=== PATIENT | male | born 2000 | race Caucasian/White ===

== ENCOUNTER 2021-03-08 12:46 | Emergency (ER) | payer MEDICAID, SELFPAY ==
[2021-03-08 13:30] VITALS: BP 130/84; PULSE 91; RESP 19; TEMP 37.1; O2SAT 99; BMI 43.0
[2021-03-08 13:57] LABS: UTC Strep Screen (Rapid) Positive (Negative)
--- NOTE | 2021-03-08 14:02 | HMH.EDUTC ---
[facility] [place] Impression: Strep throat Disposition: Home, Self-Care Condition on Discharge: Good Instructions: Strep Throat, DI for Strep Throat Additional Instructions: *Monitor Temp, Over the counter Motrin or Tylenol as directed/as needed Tylenol every 4 hours and Motrin every 6 hours (as long as your family doctor has told you that you can take it) for fever or pain. and straight to ER if unable to lower temp less than 101.0 after medication given *Warm salt water gargles may help to soothe the throat *Throat Lozenges *Warm fluids like tea with honey may help to soothe the throat *Sleep elevated *Humidifier/Vaporizer *If you did not take Penicillin shot or was unable to, start taking antibiotic immediately and make sure that you take it for the FULL length of time although you should start to feel better in 24-48 hours *change toothbrush and toothpaste 24-48 hours after starting to take antibiotics so you do not reinfect yourself Monitor Temp. Tylenol and/or Ibuprofen as needed. ER if fever is no less than 101 despite alternating Tylenol and Ibuprofen * Encourage fluids, water, Gatorade, powerade, pedialyte if infant/toddler/or child *Cold fluids, popsicles and ice cream may feel good on his throat Follow up IMMEDIATELY for new or worsening symptoms or no Noticeable improvement over the next 48-72 hours. 911 for difficulty breathing or swallowing You were tested for today for COVID19 your test result should be back in the next 24-48 hours, you may check your results on the [facility] My health portal if you have trouble logging on or seeing your results you may call You was given a handout with instructions for Self Quarantine and Self isolation for while you wait on test results and what to do if they are positive If you are positive the Health Dept will be contacting you also Make sure to take your Vitamins Vit. C Vit D and Zinc if you can take them Prescriptions: methylPREDNISolone [Medrol 4mg tab] 4 mg PO DIRECTED #21 tab Transmission Status: Pending to [facility] # Azithromycin [Z-Marcelino 250mg Tab] 250 mg PO DIRECTED #6 tab Transmission Status: Pending to [facility] # Referrals: Lenard Steele MD [Primary Care Provider] - As needed Forms: Work/School Release Time of Disposition: 14:12 Medical Decision Making - Milo Inquiry Pt receiving controlled substance: No Milo was queried for this patient: No Vital Signs: 03/08/21 13:30 Temperature 98.8 F Temperature Source Oral Pulse Rate [Right Brachial] 91 H Respiratory Rate 19 Blood Pressure [Right Arm] 130/84 Blood Pressure Mean [Right Arm] 99 Blood Pressure Source [Right Arm] Automatic Cuff Blood Pressure Position [Right Arm] Sitting 02 Sat by Pulse Oximetry 99 Oxygen Delivery Method Room Air - Lab Data Lab results reviewed: Yes: I reviewed the patient's lab results. Lab Results 03/08/21 13:52: Strep Scn Rapid Clinic Positive A Orders (Tests/Meds): ORDERS Category Date Time Status Covid-19 Nasal PCR ([facility]) Routine Lab 03/08/21 13:40 [place] [facility] [place] - General Stated complaint: wheezing, chest congestion Time Seen by Provider: 03/08/21 14:02 Mode of Arrival: Ambulatory Source of Information: Patient Limitations: No Limitations Description of Symptoms (Recalled from Triage Doc. by RN): PATIENT C/O COUGH AND CHEST CONGESTION X 2 WEEKS HEENT Symptoms (Recalled from RN notes): Yes Resp Symptoms (Recalled from RN notes): Yes Skin Symptoms (Recalled from RN notes): No MS Symptoms (Recalled from RN notes): No Functional Status (Recalled from RN notes): WNL - History of Present Illness Provider Complaint: Patient states that he has been having sore throat, cough, congestion and stuffy nose States that his throat hurts when he coughs or swallows States that today his throat was hurting worse so he came in to get checked out - Related Data Previous Rx's Medication Instructions Recorded
[2021-03-08 14:18] VITALS: BP 130/84; PULSE 91; RESP 19; TEMP 37.1; O2SAT 99
== END 2021-03-08 14:25 | disposition home or self-care (01) ==
PROVIDERS: Emergency Provider Nurse Practitioner; PCP Internal Medicine Adolescent Medicine
DX: J02.0 Streptococcal pharyngitis (principal); Z20.822 Contact with and (suspected) exposure to COVID-19
CPT/HCPCS: 87880; 99203; C9803; G0463; U0003; U0005

== ENCOUNTER 2022-03-13 15:44 | Emergency (ER) | payer MEDICAID, SELFPAY ==
[2022-03-13 16:04] VITALS: BP 132/76; PULSE 87; RESP 18; TEMP 36.9; O2SAT 96; BMI 39.1
[2022-03-13 17:26] VITALS: BP 0/0; PULSE 0; RESP 0; TEMP -17.7; TEMP 0
== END 2022-03-13 17:28 | disposition left against medical advice (07) ==
LOC: UTC 16:05
PROVIDERS: Emergency Provider Nurse Practitioner Family
DX: J32.9 Chronic sinusitis, unspecified (principal)
CPT/HCPCS: 99212; G0463

== ENCOUNTER 2022-03-16 08:05 | Emergency (ER) | payer MEDICAID, SELFPAY ==
[2022-03-16 08:20] VITALS: BP 132/76; PULSE 75; RESP 22; TEMP 36.5; O2SAT 97; BMI 45.4
[2022-03-16 08:48] LABS: UTC Influenza A Antigen Negative (Negative); UTC Strep Screen (Rapid) Negative (Negative)
[2022-03-16 08:49] LABS: UTC Influenza B Antigen Negative (Negative)
--- NOTE | 2022-03-16 08:52 | EXP.UTC ---
Discharge Plan Disposition Patient Disposition: Home, Self-Care Condition: Good Prescriptions Prescriptions: New azithromycin [Zithromax Z-Marcelino] 250 mg tablet See Rx Instructions .ROUTE .COMPLEX 5 Days Qty: 6 0RF Rx Instructions: For 250 mg dose pack: take 500 mg today (day 1), then 250 mg for 4 days (days 2-5) methylprednisolone [Medrol (Marcelino)] 4 mg tablets,dose pack See Rx Instructions .Route .COMPLEX 6 Days Qty: 21 0RF Rx Instructions: taper pack; polymyxin B sulf-trimethoprim [Polytrim] 10,000 unit- 1 mg/mL drops 2 drp ophthalmic (eye) Q6H 7 Days Qty: 10 0RF Rx Instructions: both eyes while awake; do not exceed 6 doses in 24 hours Referrals Follow up/Referrals: Provider,Referral, MD [Primary Care Provider] - See instructions Activity Restrictions/Add. Instructions Additional Instructions/Restrictions: *Monitor Temp, Over the counter Motrin or Tylenol as directed/as needed Tylenol every 4 hours and Motrin every 6 hours (as long as your family doctor has told you that you can take it) for fever or pain. and straight to ER if unable to lower temp less than 101.0 after medication given *Warm salt water gargles may help to soothe the throat *Throat Lozenges? *Warm fluids like tea with honey may help to soothe the throat? *Sleep elevated *Humidifier/Vaporizer *Take medication as prescribed Wash hands well before and after applying drops Your throat swab was sent for culture. Those results are typically sent to your primary care. Be sure to follow up in 2-3 days with your family doctor/primary care physician if no improvement so they can review those result and treat if necessary. If you don?t have a primary care doctor, I recommend you get one but in the mean time, you will have to return to a walk in clinic Follow up IMMEDIATELY for new or worsening symptoms or no Noticeable improvement over the next 48-72 hours. 911 for difficulty breathing or swallowing Instructions Patient Instructions: DI for Sinusitis, Sinusitis Discharge ED Provider: Lakshmi Harrison [facility] [place] General Stated complaint: Head congestion, cough, sinus congestion Mode of Arrival: Ambulatory Source of Information: Patient and Parent(s) Limitations: No Limitations Time Seen by Provider: 03/16/22 08:52 Description of Symptoms (Recalled from Triage Doc. by RN): PATIENT C/O EYE DRAINAGE, RUNNY NOSE, AND SORE THROAT X 3 WEEKS HEENT Symptoms (Recalled from RN notes): Yes Resp Symptoms (Recalled from RN notes): No Skin Symptoms (Recalled from RN notes): No MS Symptoms (Recalled from RN notes): No Functional Status (Recalled from RN notes): WNL History of Present Illness Provider Complaint: Patient states he hasnt felt well in about 3 weeks States that he has been having sinus congestion and pressure, drainage and matting in both eyes sore throat and cough States that last night he was still not feeling well so mother had him com in and get checked out Related Data Previous Rx's Medication Instructions Recorded azithromycin 250 mg tablet See Rx Instructions PO .COMPLEX 5 03/16/22 (Zithromax Z-Marcelino) days #6 tabs methylprednisolone 4 mg tablets in See Rx Instructions .Route 03/16/22 a dose pack (Medrol (Marcelino)) .COMPLEX 6 days #21 tabs polymyxin B sulfate 10,000 2 drp ophthalmic (eye) Q6H 7 days 03/16/22 unit-trimethoprim 1 mg/mL eye #10 mL drops (Polytrim) Allergies Allergy/AdvReac Type Severity Reaction Status Date / Time Penicillins Allergy Verified 03/08/21 13:56 Worker's Comp Is this a Worker's Comp case?: No PFSH PFSH Medical History (Updated 03/16/22 @ 08:48 by Mallory Adler RN) Hyperlipidemia Hypertension Social History (Updated 03/16/22 @ 08:48 by Mallory Adler RN) Smoking Status: Unknown if ever smoked alcohol intake: never current occupational status: other Travel in the last 8 weeks: None ROS Obtained: Yes All systems reviewed & no additi
[2022-03-16 09:08] VITALS: BP 132/76; PULSE 75; RESP 22; TEMP 37.2; O2SAT 97
== END 2022-03-16 09:13 | disposition home or self-care (01) ==
PROVIDERS: Emergency Provider Nurse Practitioner
DX: J02.9 Acute pharyngitis, unspecified (principal); H10.33 Unspecified acute conjunctivitis, bilateral; R05.9 Cough, unspecified; R09.89 Other specified symptoms and signs involving the circulatory and respiratory systems; I10 Essential (primary) hypertension; E78.5 Hyperlipidemia, unspecified; Z79.52 Long term (current) use of systemic steroids; Z88.0 Allergy status to penicillin
CPT/HCPCS: 87804; 87880; 99213; G0463

== ENCOUNTER 2022-06-18 01:57 | Emergency (ER) | payer MEDICAID, SELFPAY ==
[2022-06-18 02:07] VITALS: BP 156/86; PULSE 88; RESP 18; TEMP 36.9; O2SAT 96; BMI 43.5
--- NOTE | 2022-06-18 02:13 | XR_ITS ---
PROCEDURE INFORMATION: Exam: XR Left Knee Exam date and time: 06/18/2022 2:10 AM Age: 22 years old Clinical indication: Pain; Knee; Left; Additional info: Knee pain TECHNIQUE: Imaging protocol: Radiologic exam of the Left knee. Views: 3 views. COMPARISON: No relevant prior studies available. FINDINGS: Bones/joints: Osseous alignment is normal. No acute fracture evident. Mild degenerative changes are noted in the lateral compartment. Soft tissues: Normal. IMPRESSION: Mild osteoarthritis. No acute abnormality
--- NOTE | 2022-06-18 02:55 | HMH.EDLOEX ---
Discharge Plan Disposition Patient Disposition: Home, Self-Care Prescriptions Prescriptions: New prednisone [prednisone] 20 mg tablet 20 mg PO BID Qty: 10 0RF No Action azithromycin [Zithromax Z-Marcelino] 250 mg tablet See Rx Instructions .ROUTE .COMPLEX 5 Days Qty: 6 0RF Rx Instructions: For 250 mg dose pack: take 500 mg today (day 1), then 250 mg for 4 days (days 2-5) methylprednisolone [Medrol (Marcelino)] 4 mg tablets,dose pack See Rx Instructions .Route .COMPLEX 6 Days Qty: 21 0RF Rx Instructions: taper pack; polymyxin B sulf-trimethoprim [Polytrim] 10,000 unit- 1 mg/mL drops 2 drp ophthalmic (eye) Q6H 7 Days Qty: 10 0RF Rx Instructions: both eyes while awake; do not exceed 6 doses in 24 hours Referrals Follow up/Referrals: Provider,Referral, MD [Primary Care Provider] - See instructions Clinical Impressions Clinical Impression: Left knee sprain Instructions Patient Instructions: DI for Knee Sprain Discharge ED Provider: Belkys (ED)Joshua Lower Extremity Injury HPI General Chief Complaint: Extremity Injury, Lower Stated Complaint: Left leg pain Time Seen by Provider: 06/18/22 02:55 Mode of Arrival: Wheelchair Source of Information: Patient, Spouse and Medical Record Limitations: No Limitations Description of Symptoms (Recalled from ER Triage Doc. by RN): PT arrives via private vehicle. C/O left knee pain. States that two days ago at work he was laying steven on his knees when he felt a pop in his knee but was able to pop it back into place. Pt states that roughly 30 minutes ago he rolled over in bed and believes he twisted his left knee in his sleep. Woke up with severe pain and is unable to fully extend his leg. History of Present Illness HPI Narrative: pt with lt knee pain - pt has popping lt patella and pain-- pain with extending knee complaint: knee injury Onset (ago): hour(s) Injury: Left: knee Type of Injury: hyperextension Place: home Severity: moderate Associated symptoms: able to partially bear weight Related Data Previous Rx's Medication Instructions Recorded azithromycin 250 mg tablet See Rx Instructions PO .COMPLEX 5 03/16/22 (Zithromax Z-Marcelino) days #6 tabs methylprednisolone 4 mg tablets in See Rx Instructions .Route 03/16/22 a dose pack (Medrol (Marcelino)) .COMPLEX 6 days #21 tabs polymyxin B sulfate 10,000 2 drp ophthalmic (eye) Q6H 7 days 03/16/22 unit-trimethoprim 1 mg/mL eye #10 mL drops (Polytrim) prednisone 20 mg tablet 20 mg PO BID #10 tabs 06/18/22 Allergies Allergy/AdvReac Type Severity Reaction Status Date / Time Penicillins Allergy Verified 03/08/21 13:56 [facility] Disclaimer: The information contained in this section may have been updated after the patient was seen, as this information can be updated by other users. Medical History (Updated 06/18/22 @ 03:23 by Joshua Rizvi (RAFAL)MD) Hyperlipidemia Hypertension Social History (Updated 03/16/22 @ 09:04 by Lakshmi Harrison APRN) Smoking Status: Never smoker alcohol intake: never current occupational status: other Travel in the last 8 weeks: None ROS Obtained: Yes All systems reviewed & no additional complaints except as documented Physical Exam General General appearance: alert Head Head exam: normocephalic Eye Eye exam: Present PERRL and EOMI ENT ENT exam: Present mucous membranes moist Neck Neck exam: Present trachea midline Respiratory Respiratory exam: Absent respiratory distress Cardiovascular Cardiovascular exam: Present regular rate Abdominal Exam Abdominal exam: Present soft Expanded Lower Extremity Exam Left: Knee exam: Present tenderness and knee extension intact; Absent full ROM or swelling Neurovascular/Tendon exam: Absent pulse deficit or motor deficit Neurological Exam Neurological exam: Present alert and CN II-XII intact Skin Skin exam: Absent rash Medical Decision Making Medical Records Medical records r
[2022-06-18 03:14] VITALS: BP 150/80; PULSE 82; RESP 18; TEMP 36.6; O2SAT 99
== END 2022-06-18 03:27 | disposition home or self-care (01) ==
PROVIDERS: Emergency Provider Emergency Medicine
DX: S83.92XA Sprain of unspecified site of left knee, initial encounter (principal); X50.0XXA Overexertion from strenuous movement or load, initial encounter; I10 Essential (primary) hypertension; E78.5 Hyperlipidemia, unspecified; Y99.0 Civilian activity done for income or pay
CPT/HCPCS: 73562; 99283; 99284

== ENCOUNTER 2023-05-02 13:52 | Outpatient (CLI) | payer MEDICAID, SELFPAY ==
[2023-05-02 13:24] LABS: Basophils % 0.3 % (0.1-2.0); Eosinophils # 0.1 K/mm3 (0.0-0.4); Eosinophils % 1.7 % (0.1-12.0); Hematocrit 32.8 % (42.0-52.0); Hemoglobin 9.9 g/dL (14.1-18.0); Lymphocytes # 1.4 K/mm3 (0.7-4.5); Lymphocytes % 17.5 % (10-50); Mean Corpuscular HGB Conc 30.3 g/dL (31.8-35.4); Mean Corpuscular Volume 79.2 fl (80-94); Mean Platelet Volume 8.1 fl (7.4-10.4); Monocytes # 0.4 K/mm3 (0.1-1.0); Monocytes % 5.3 % (1.7-9.3); Neutrophils % 75.2 % (37.0-80.0); Platelet Count 461 K/mm3 (142-424); Red Blood Count 4.14 M/mm3 (4.60-6.20); Red Cell Distribution Width 19.3 % (11.5-17.5)
[2023-05-02 14:12] LABS: Alanine Aminotransferase 43 U/L (12-78); Albumin Level 4.1 g/dl (3.5-5.0); Albumin/Globulin Ratio 1.2 (1.1-1.8); Alkaline Phosphatase 73 U/L (38-126); Anion Gap 15.3 mEq/L (5-15); Aspartate Amino Transferase 29 U/L (17-59); Bilirubin,Total 0.3 mg/dl (0.2-1.3); Blood Urea Nitrogen 7 mg/dl (9-20); Calcium 8.8 mg/dl (8.4-10.2); Carbon Dioxide 22 mmol/L (22.0-30.0); Chloride 104 mmol/L (98-107); Chol/HDL Ratio 7.4 (1-3.5); Cholesterol 177 mg/dl (140-200); Estimated Glomerular Filt Rate 121 ml/min (>60); GFR (African American) 146 ML/MIN (>60); Globulin 3.4 g/dL (1.3-3.2); Glucose 83 mg/dl (74-100); HDL Cholesterol 24 mg/dl (40-60); Magnesium 1.9 mg/dl (1.6-2.3); Potassium 4.3 mmoL/L (3.5-5.1); Sodium 137 mmol/L (136-145); Total Protein,Serum 7.5 g/dl (6.3-8.2); Triglycerides 190 mg/dl (30-150); VLDL Cholesterol 38 mg/dL (0-40)
[2023-05-02 14:30] LABS: Direct LDL Cholesterol 111.31 mg/dL (100-129)
[2023-05-02 14:30] LABS: Free T4 (Free Thyroxine) 1.21 ng/dl (0.78-2.19)
[2023-05-02 14:45] LABS: Thyroid Stimulating Hormone 2.96 uIU/mL (0.465-4.68)
[2023-05-02 15:04] LABS: Vitamin B12 723 pg/mL (239-931)
[2023-05-02 15:06] LABS: 25-OH Vitamin D, Total < 12.8 ng/mL (30-100)
[2023-05-02 16:47] LABS: Hemoglobin A1C 4.7 % (4.0-6.0)
[2023-05-02 18:42] LABS: Amphetamine/Metha Screen,Urine Negative ng/ml (<1000); Barbiturates Screen,Urine Negative ng/ml (<200); Benzodiazepines Screen,Urine Negative ng/ml (<200); Cannabinoid Screen,Urine Negative ng/ml (<50); Cocaine Screen,Urine Negative ng/ml (<300); Methadone Screen,Urine Negative ng/ml (<300); Opiate Screen,Urine Negative ng/ml (<300); Phencyclidine Screen,Urine Negative ng/ml (<25)
== END 2023-05-02 23:59 ==
LOC: LAB.DROPOF 13:53
PROVIDERS: PCP Nurse Practitioner Family; Visit Provider Nurse Practitioner Family
DX: R53.83 Other fatigue (principal); G62.9 Polyneuropathy, unspecified; D64.9 Anemia, unspecified; Z13.1 Encounter for screening for diabetes mellitus; Z13.220 Encounter for screening for lipoid disorders; E55.9 Vitamin D deficiency, unspecified; Z79.899 Other long term (current) drug therapy
CPT/HCPCS: 80053; 80061; 80307; 82306; 82607; 83036; 83735; 84439; 84443; 85025

== ENCOUNTER 2023-05-22 13:41 | Outpatient (CLI) | payer MEDICAID, SELFPAY ==
[2023-05-22 14:46] LABS: Basophils # 0.1 K/mm3 (0-0.2); Basophils % 0.5 % (0.1-2.0); Eosinophils # 0.2 K/mm3 (0.0-0.4); Eosinophils % 2.5 % (0.1-12.0); Hematocrit 36.3 % (42.0-52.0); Hemoglobin 11.4 g/dL (14.1-18.0); Lymphocytes # 2.2 K/mm3 (0.7-4.5); Lymphocytes % 25.3 % (10-50); Mean Corpuscular HGB Conc 31.5 g/dL (31.8-35.4); Mean Corpuscular Hemoglobin 24.1 pg (27.0-31.2); Mean Corpuscular Volume 76.7 fl (80-94); Mean Platelet Volume 8.1 fl (7.4-10.4); Monocytes # 0.4 K/mm3 (0.1-1.0); Monocytes % 4.1 % (1.7-9.3); Neutrophils # 5.9 K/mm3 (1.8-7.8); Neutrophils % 67.5 % (37.0-80.0); Platelet Count 507 K/mm3 (142-424); Red Blood Count 4.73 M/mm3 (4.60-6.20); Red Cell Distribution Width 18.4 % (11.5-17.5); White Blood Count 8.8 K/mm3 (4.8-10.8)
[2023-05-22 15:13] LABS: Alanine Aminotransferase 23 U/L (12-78); Albumin Level 4.3 g/dl (3.5-5.0); Albumin/Globulin Ratio 1.3 (1.1-1.8); Alkaline Phosphatase 59 U/L (38-126); Anion Gap 16.8 mEq/L (5-15); Aspartate Amino Transferase 24 U/L (17-59); Bilirubin,Total 0.3 mg/dl (0.2-1.3); Blood Urea Nitrogen 8 mg/dl (9-20); Calcium 9.2 mg/dl (8.4-10.2); Carbon Dioxide 25 mmol/L (22.0-30.0); Chloride 102 mmol/L (98-107); Estimated Glomerular Filt Rate 121 ml/min (>60); GFR (African American) 146 ML/MIN (>60); Globulin 3.3 g/dL (1.3-3.2); Glucose 77 mg/dl (74-100); Potassium 4.8 mmoL/L (3.5-5.1); Sodium 139 mmol/L (136-145); Total Protein,Serum 7.6 g/dl (6.3-8.2)
== END 2023-05-22 23:59 ==
LOC: LAB.DROPOF 13:42
PROVIDERS: PCP Nurse Practitioner Family; Visit Provider Nurse Practitioner Family
DX: D64.9 Anemia, unspecified (principal); L08.9 Local infection of the skin and subcutaneous tissue, unspecified; R53.83 Other fatigue; T14.8XXA Other injury of unspecified body region, initial encounter; Z98.890 Other specified postprocedural states; R78.81 Bacteremia; B95.2 Enterococcus as the cause of diseases classified elsewhere
CPT/HCPCS: 80053; 85025; 87070; 87205

== ENCOUNTER 2023-05-25 11:49 | Outpatient (CLI) | payer MEDICAID, SELFPAY ==
--- NOTE | 2023-05-25 11:49 | MR_ITS ---
FINAL REPORT CLINICAL HISTORY: left lower leg wound infection that tunnels COMPARISON: None FINDINGS: Multiplanar MR imaging of the left lower leg was performed with and without contrast. There is extensive inflammation throughout the lower leg. There is marked abnormal signal particularly evident within the tibialis posterior muscle and within the flexor hallucis longus muscle. There is also abnormal signal within the inferior soleus muscle. There is fluid along the fascial plane. On the post infusion images there is enhancement along the periphery of the tibialis posterior and flexor hallucis longus muscles. The muscles themselves do not appear do enhance. Discrete loculated fluid collection is not seen. There appears to be localized ulceration along the medial aspect of the lower leg. IMPRESSION: Extensive inflammation throughout muscular compartments of the lower leg with overlying soft tissue ulceration. 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 Surgical evaluation highly recommended. No evidence of marrow edema to suggest osteomyelitis. Reviewed, Interpreted and Dictated by Blaze Ruiz MD Transcribed by Maryan Dillon Authenticated and [facility]
[2023-05-25] MEDS: GADOTERIDOL INJ 17ML SYRINGE 20 ML IV (12:44)
[2023-05-25] MEDS: SODIUM CHLORIDE 0.9% 10ML SYR (RAD ONLY) 10 ML IV (12:44)
== END 2023-05-25 23:59 | disposition home or self-care (01) ==
LOC: RAD 11:49
PROVIDERS: PCP Nurse Practitioner Family; Visit Provider Nurse Practitioner Family
DX: S81.832S Puncture wound without foreign body, left lower leg, sequela (principal); L08.9 Local infection of the skin and subcutaneous tissue, unspecified; T14.8XXA Other injury of unspecified body region, initial encounter; B96.89 Other specified bacterial agents as the cause of diseases classified elsewhere; B95.2 Enterococcus as the cause of diseases classified elsewhere; M79.662 Pain in left lower leg
CPT/HCPCS: 73720; A9576

== ENCOUNTER 2023-05-26 11:28 | Emergency (ER) | payer MEDICAID, SELFPAY ==
[2023-05-26] VITALS (7 sets, daily range): BP systolic 138–153; BP diastolic 68–93; PULSE 85–97; RESP 16–20; TEMP 36.9; O2SAT 96–100; BMI 37.5
--- NOTE | 2023-05-26 11:47 | PC.NURSE ---
Air methods and air evac both declined due to weather.
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
[2023-05-26 12:11] LABS: Basophils # 0.1 K/mm3 (0-0.2); Basophils % 0.6 % (0.1-2.0); Eosinophils # 0.3 K/mm3 (0.0-0.4); Eosinophils % 3.1 % (0.1-12.0); Hematocrit 37.8 % (42.0-52.0); Hemoglobin 11.9 g/dL (14.1-18.0); Lymphocytes # 2.2 K/mm3 (0.7-4.5); Lymphocytes % 26.3 % (10-50); Mean Corpuscular HGB Conc 31.4 g/dL (31.8-35.4); Mean Corpuscular Hemoglobin 23.7 pg (27.0-31.2); Mean Corpuscular Volume 75.5 fl (80-94); Monocytes # 0.3 K/mm3 (0.1-1.0); Monocytes % 3.3 % (1.7-9.3); Neutrophils # 5.6 K/mm3 (1.8-7.8); Neutrophils % 66.6 % (37.0-80.0); Platelet Count 402 K/mm3 (142-424); Red Blood Count 5.01 M/mm3 (4.60-6.20); Red Cell Distribution Width 18.8 % (11.5-17.5); White Blood Count 8.5 K/mm3 (4.8-10.8)
[2023-05-26] MEDS: VANCOMYCIN CONSULT REQUEST 1 EACH NOTAPPLIC (12:28)
[2023-05-26] MEDS: ERTAPENEM SODIUM 1 GM in 0.9 % SODIUM CHLORIDE 50 ML IV (12:29)
[2023-05-26 12:33] LABS: Alanine Aminotransferase 31 U/L (12-78); Albumin Level 4.3 g/dl (3.5-5.0); Albumin/Globulin Ratio 1.1 (1.1-1.8); Alkaline Phosphatase 59 U/L (38-126); Anion Gap 16.6 mEq/L (5-15); Aspartate Amino Transferase 30 U/L (17-59); Bilirubin,Total 0.4 mg/dl (0.2-1.3); Blood Urea Nitrogen 8 mg/dl (9-20); Calcium 9.5 mg/dl (8.4-10.2); Carbon Dioxide 25 mmol/L (22.0-30.0); Chloride 104 mmol/L (98-107); Creatine Kinase 76 U/L (55-170); Creatinine Clearance Estimated 255 mL/min (50-200); Estimated Glomerular Filt Rate 141 ml/min (>60); GFR (African American) 171 ML/MIN (>60); Globulin 3.8 g/dL (1.3-3.2); Glucose 156 mg/dl (74-100); Potassium 3.6 mmoL/L (3.5-5.1); Sodium 142 mmol/L (136-145); Total Protein,Serum 8.1 g/dl (6.3-8.2)
[2023-05-26 12:37] LABS: Lactic Acid 2.3 mmol/L (0.7-2.1)
[2023-05-26 12:40] LABS: C-Reactive Protein 15.8 mg/L (0-4)
[2023-05-26] MEDS: CLINDAMYCIN PHOSPHATE 900 MG in 0.9 % SODIUM CHLORIDE 50 ML 56 MG IV (13:16)
[2023-05-26] MEDS: VANCOMYCIN/WATER FOR INJ (PEG) 1.75 GM/350 ML PIGGYBACK IV (13:26)
[2023-05-26 16:05] LABS: Reflex Lactic Add Lactic Reflex
== END 2023-05-26 14:24 | disposition short-term general hospital (02) ==
PROVIDERS: Emergency Provider Emergency Medicine; PCP Nurse Practitioner Family
DX: M72.6 Necrotizing fasciitis (principal); M60.862 Other myositis, left lower leg; S81.802S Unspecified open wound, left lower leg, sequela; Y24.9XXS Unspecified firearm discharge, undetermined intent, sequela; I10 Essential (primary) hypertension; E78.5 Hyperlipidemia, unspecified; F17.200 Nicotine dependence, unspecified, uncomplicated
CPT/HCPCS: 80053; 82550; 83605; 85025; 86140; 87040; 96361; 96365; 96368; 96375; 99291; J0736; J1335

== ENCOUNTER 2023-06-19 10:06 | Outpatient (CLI) | payer MEDICAID, SELFPAY | END 2023-06-19 23:59 | LOC: LAB.DROPOF 10:06 | PROVIDERS: PCP Nurse Practitioner Family; Visit Provider Nurse Practitioner Family | DX: M79.605 Pain in left leg (principal); L08.9 Local infection of the skin and subcutaneous tissue, unspecified; T14.8XXA Other injury of unspecified body region, initial encounter; B96.89 Other specified bacterial agents as the cause of diseases classified elsewhere | CPT/HCPCS: 87070; 87205 ==

== ENCOUNTER 2023-07-12 10:01 | Outpatient (CLI) | payer MEDICAID, SELFPAY ==
--- NOTE | 2023-07-12 10:02 | CA_ITS ---
FINAL REPORT TECHNIQUE: Color Doppler, duplex Doppler and compression sonography of the left lower extremity deep venous systems was performed. CLINICAL HISTORY: Left lower leg swelling and redness proximal to left lateral ankle, pain FINDINGS: There is no evidence of deep venous thrombosis from the level of the groin to the calf. The veins are patent and compressible. IMPRESSION: No evidence of deep venous thrombosis left lower extremity. Reviewed, Interpreted and Dictated by Yves Alvarez III, MD Transcribed by Radha Boles Authenticated and [facility]
[2023-07-12 14:32] LABS: Adenovirus,PCR Not Detected (NotDetected); Coronavirus 19, PCR Not Detected (NotDetected); Coronavirus 229E Not Detected (NotDetected); Coronavirus NL63 Not Detected (NotDetected); Coronavirus OC43 Not Detected (NotDetected); Coronovirus HKU1,PCR Not Detected (NotDetected); Human Metapneumovirus Not Detected (NotDetected); Influenza A, PCR Not Detected (NotDetected); Influenza AH1, 2009 Not Detected (NotDetected); Influenza AH1, PCR Not Detected (NotDetected); Influenza AH3,PCR Not Detected (NotDetected); Influenza B, PCR Not Detected (NotDetected); Parainfluenza 1, PCR Not Detected (NotDetected); Parainfluenza 2, PCR Not Detected (NotDetected); Parainfluenza 3, PCR Not Detected (NotDetected); Parainfluenza 4, PCR Not Detected (NotDetected); Respiratory Syncytial Virus Not Detected (NotDetected); Rhinovirus/Enterovirus Not Detected (NotDetected)
== END 2023-07-12 23:59 ==
LOC: RT 10:02
PROVIDERS: PCP Nurse Practitioner Family; Visit Provider Nurse Practitioner Family
DX: M79.605 Pain in left leg (principal); M79.89 Other specified soft tissue disorders; J06.9 Acute upper respiratory infection, unspecified; R50.9 Fever, unspecified; H66.91 Otitis media, unspecified, right ear; R09.81 Nasal congestion; R53.83 Other fatigue; Z20.828 Contact with and (suspected) exposure to other viral communicable diseases; Z72.0 Tobacco use
CPT/HCPCS: 87632; 87635; 93971

== ENCOUNTER 2023-07-13 20:50 | Outpatient (CLI) | payer MEDICAID, SELFPAY | END 2023-07-13 23:59 | LOC: LAB.DROPOF 20:50 | PROVIDERS: PCP Nurse Practitioner Family; Visit Provider Nurse Practitioner Family | DX: R50.9 Fever, unspecified (principal); H92.01 Otalgia, right ear; R09.81 Nasal congestion; R53.83 Other fatigue | CPT/HCPCS: 87070 ==

== ENCOUNTER 2023-07-14 12:13 | Emergency (ER) | payer MEDICAID, SELFPAY ==
[2023-07-14] VITALS (12 sets, daily range): BP systolic 127–143; BP diastolic 70–80; PULSE 62–107; RESP 15–16; TEMP 36.7–36.8; O2SAT 98–100; BMI 39.1
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
--- NOTE | 2023-07-14 12:37 | PC.NURSE ---
in room talking with patient at this time.
--- NOTE | 2023-07-14 12:46 | CT_ITS ---
FINAL REPORT TECHNIQUE: CT lower extremity with contrast, axial images only were sent. CLINICAL HISTORY: LLE swelling, concern for nec fasc, chronic wound COMPARISON: None FINDINGS: CT LOWER EXTREMITY WITH CONTRAST: CT examination of the left lower leg was performed from the knee through the lower third of the leg after the administration of intravenous contrast. No evidence of fracture is seen. There is nonspecific periosteal thickening of the posterior aspect of the tibia. There is diffuse edema of the soleus and extensor musculature of the left calf. There is a fluid collection with several bubbles of air, the fluid collection measuring at least 7 x 2.4 x 2.2 cm in size. This fluid collection is most worrisome for an abscess. There is a soft tissue defect with soft tissue air in the medial lower leg, as well as medial and lateral cellulitis/inflammation. The overall appearance is nonspecific but worrisome for necrotic fasciitis with abscess. There are several enlarged popliteal nodes, likely reactive. IMPRESSION: 7 x 2.4 x 2.2 cm fluid collection with several bubbles of air, located within diffusely edematous soleus and extensor musculature of the left calf, most worrisome for abscess. There is a soft tissue defect with soft tissue air in the medial aspect of the lower leg, with medial and lateral cellulitis/inflammatory change. The overall appearance is worrisome for fasciitis with abscess. Several enlarged popliteal nodes, likely reactive. Reviewed, Interpreted and Dictated by Yves Alvarez III, MD Transcribed by Chantal Andrews Authenticated and [facility]
[2023-07-14 12:54] LABS: Basophils # 0.1 K/mm3 (0-0.2); Basophils % 0.5 % (0.1-2.0); Eosinophils # 0.1 K/mm3 (0.0-0.4); Eosinophils % 0.7 % (0.1-12.0); Hematocrit 36.1 % (42.0-52.0); Hemoglobin 11.6 g/dL (14.1-18.0); Lymphocytes # 2.7 K/mm3 (0.7-4.5); Lymphocytes % 15.1 % (10-50); Mean Corpuscular Hemoglobin 24.8 pg (27.0-31.2); Mean Corpuscular Volume 77.5 fl (80-94); Mean Platelet Volume 7.9 fl (7.4-10.4); Monocytes # 0.8 K/mm3 (0.1-1.0); Monocytes % 4.5 % (1.7-9.3); Neutrophils # 13.9 K/mm3 (1.8-7.8); Neutrophils % 79.2 % (37.0-80.0); Platelet Count 365 K/mm3 (142-424); Red Blood Count 4.66 M/mm3 (4.60-6.20); Red Cell Distribution Width 17.8 % (11.5-17.5); White Blood Count 17.6 K/mm3 (4.8-10.8)
[2023-07-14 12:56] LABS: Chloride 99 mmol/L (98-107); MANUAL DIFFERENTIAL MANUAL DIFFERENTIAL (MANUAL DIFF); Potassium 3.7 mmoL/L (3.5-5.1); Sodium 135 mmol/L (136-145)
[2023-07-14 12:58] LABS: Alanine Aminotransferase 27 U/L (12-78); Alkaline Phosphatase 74 U/L (38-126); Anion Gap 14.7 mEq/L (5-15); Aspartate Amino Transferase 29 U/L (17-59); Bilirubin,Total 0.5 mg/dl (0.2-1.3); Blood Urea Nitrogen 9 mg/dl (9-20); Carbon Dioxide 25 mmol/L (22.0-30.0); Creatine Kinase 106 U/L (55-170); Creatinine Clearance Estimated 232 mL/min (50-200); Estimated Glomerular Filt Rate 121 ml/min (>60); GFR (African American) 146 ML/MIN (>60)
[2023-07-14 12:59] LABS: Albumin Level 4.1 g/dl (3.5-5.0); Globulin 4.1 g/dL (1.3-3.2); Glucose 107 mg/dl (74-100); Total Protein,Serum 8.2 g/dl (6.3-8.2)
[2023-07-14 13:03] LABS: Lymphocytes % 17 % (10-50); Monocytes % 7 % (2-9); Neutrophils % 76 % (42-76); Platelet Estimate Normal; RBC Morphology Normal; Total Cells Counted 100
[2023-07-14 13:08] LABS: VBG Base Excess 0.5 mmol/L (-2.4-2.3); VBG HCO3 26.2 mmol/L (23-30); VBG Oxygen Saturation 71.8 % (50-70); VBG PH 7.35 mmol/L (7.31-7.41); VBG PO2 39.5 mmol/L (28-40); VBG Total CO2 27.7 mmol/L (23-27)
[2023-07-14 13:09] LABS: Lactate Venous 2.5 mmol/L (0.4-2.0)
--- NOTE | 2023-07-14 13:10 | PC.NURSE ---
Patient gone to CT at this time.
--- NOTE | 2023-07-14 13:15 | EXP.PHA.CONS ---
Pharmacy Consult Date: 07/14/23 Time: 13:15 Referring provider: DR. PARSONS Reason for Consult:: VANCOMYCIN DOSING Allergies Allergy/AdvReac Type Severity Reaction Status Date / Time Penicillins Allergy Verified 07/13/23 13:24 seafood Allergy Unknown Uncoded 07/13/23 13:24 Home Medications Medication Instructions Recorded Confirmed Type apixaban 5 mg tablet 5 mg PO BID #180 tabs 05/29/23 07/13/23 Rx aspirin 81 mg tablet,delayed 81 mg PO DAILY #180 tabs 05/29/23 07/13/23 Rx release levofloxacin 750 mg tablet 750 mg PO DAILY 7 days #7 tabs 06/16/23 Rx acetaminophen 500 mg tablet 500 mg PO Q6H #120 tabs 06/30/23 07/13/23 Rx (Pharbetol) cholecalciferol (vitamin D3) 1,250 1,250 mcg PO WEEKLY #12 caps 06/30/23 07/13/23 Rx mcg (50,000 unit) capsule gabapentin 800 mg tablet 800 mg PO TID #90 tabs 06/30/23 07/13/23 Rx methocarbamol 750 mg tablet 750 mg PO Q6H #120 tabs 06/30/23 07/13/23 Rx azithromycin 250 mg tablet See Rx Instructions PO .COMPLEX #6 07/13/23 07/13/23 Rx tabs New Prescriptions to Start Prescriptions: Height: 1.7 m Weight: 113.398 kg Laboratory Results:: Laboratory Results - last 24 hr 07/14/23 12:39: WBC 17.6 H, RBC 4.66, Hgb 11.6 L, Hct 36.1 L, MCV 77.5 L, MCH 24.8 L, MCHC 32.0, RDW 17.8 H, Plt Count 365, MPV 7.9, Neut % (Auto) 79.2, Lymph % (Auto) 15.1, [place] % (Auto) 4.5, Eos % (Auto) 0.7, Baso % (Auto) 0.5, Neut # (Auto) 13.9 H, Lymph # (Auto) 2.7, [place] # (Auto) 0.8, Eos # (Auto) 0.1, Baso # (Auto) 0.1, Total Counted 100, Neutrophils % (Manual) 76, Lymphocytes % (Manual) 17, Monocytes % (Manual) 7, Platelet Estimate Normal, RBC Morphology Normal, Sodium 135 L, Potassium 3.7, Chloride 99, Carbon Dioxide 25, Anion Gap 14.7, BUN 9, Creatinine 0.80, Estimated Creat Clear 232, Estimated GFR 121, Est GFR ( Amer) 146, Glucose 107 H, Calcium 9.0, Total Bilirubin 0.5, AST 29, ALT 27, Alkaline Phosphatase 74, Total Creatine Kinase 106, Total Protein 8.2, Albumin 4.1, Globulin 4.1 H, Albumin/Globulin Ratio 1.0 L 07/14/23 13:02: VBG pH 7.35, VBG pCO2 49.0, VBG pO2 39.5, VBG HCO3 26.2, VBG Total CO2 27.7 H, VBG O2 Saturation 71.8 H, VBG Base Excess 0.5, VBG Lactic Acid 2.5 H Medical History: Medical History (Updated 07/12/23 @ 09:36 by Malina Becerra APRN) Left knee sprain Sinusitis Hyperlipidemia Hypertension Patient left before triage assessment Strep throat Assessment and Plan Assessment and plan all Dx Assessment and Plan for all problems:: Pharmacokinetic dosing service Objective: Patient: Floor: Age: 23 yo Serum creatinine: 0.80 mg/dL Height: 67.0 Inches Weight (kg): 113.4 Assessment: IBW (kg): 66.10 Dosing wt(kg): 113.4 Estimated Creatinine clearance (ml/min): 130 Clearance limited to 130 ml/min to reduce risk of overdosing. CRCL method: Cockcroft and Gault using ibw(default). Drug selected: Vancomycin Loading dose (mg): Vd (liters): 90.7 (factor used: 0.8 L/kg) [place] (hr-1): 0.112 Half life (hrs): 6.19 CLvanco=?? 10.158 L/hr Recommended dose: 1750 mg Interval: 8 hrs Infusion time (hrs): 2.0 Predicted peak (mcg/mL): 29.2 Predicted trough (mcg/mL): 14.91 Total body weight is being used for vancomycin dosing. Recommendations: Give Vancomycin 1750 mg q 8 hrs with an expected Cpeak of 29.2 mcg/ml and an expected Ctrough of 14.91 mcg/ml AUC 0-24 /DESTINY Data: DESTINY 0.5 mcg/mL:?? AUC/DESTINY:? 1033.7 DESTINY 1.0 mcg/mL:?? AUC/DESTINY:? 516.8 --------- DESTINY 1.5 mcg/mL:?? AUC/DESTINY:? 344.6 DESTINY 2.0 mcg/mL:?? AUC/DESTINY:? 258.4 Thank you for the consult, will continue to follow. -BERNABE RAZO, JEROMED
[2023-07-14] MEDS: SODIUM CHLORIDE 0.9% 10ML SYR (RAD ONLY) 10 ML IV (13:25)
[2023-07-14 13:26] LABS: Lactic Acid 1.6 mmol/L (0.7-2.1)
[2023-07-14] MEDS: IOPAMIDOL-370 (76%);100ML BOTTLE 100 ML IV (13:26)
[2023-07-14] MEDS: CLINDAMYCIN PHOSPHATE/D5W 900 MG/50 ML PIGGYBACK 100 MG IV (13:33)
--- NOTE | 2023-07-14 13:34 | PC.NURSE ---
CALLING [facility] FOR ER TO SPEAK WITH VASCULAR
--- NOTE | 2023-07-14 13:36 | PC.NURSE ---
SPEAKING WITH FROM [facility]
[2023-07-14] MEDS: PIPERACILLIN/TAZO 4.5 GM in 0.9 % SODIUM CHLORIDE 100 ML IV (13:44)
--- NOTE | 2023-07-14 13:56 | PC.NURSE ---
call made to radiology to [employer] to [facility]
--- NOTE | 2023-07-14 14:05 | PC.NURSE ---
on phone with dr fan for possible consult
[2023-07-14] MEDS: VANCOMYCIN/WATER FOR INJ (PEG) 1.75 GM/350 ML PIGGYBACK IV (14:10)
[2023-07-14 14:20] LABS: C-Reactive Protein 355.6 mg/L (0-4)
--- NOTE | 2023-07-14 14:58 | PC.NURSE ---
call made to [employer] to possibly fly pt to [facility], they will call back with status update
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
--- NOTE | 2023-07-14 15:36 | PC.NURSE ---
call made to care management for prior auth for insurance for pt transport
--- NOTE | 2023-07-14 15:37 | PC.NURSE ---
per carla with [facility] mang[employer] pt does not need prior auth for transportation.
[2023-07-14 17:09] LABS: Reflex Lactic Add Lactic Reflex
--- NOTE | 2023-07-18 11:28 | PC.NURSE ---
faxed to [facility] where pt was transferred
== END 2023-07-14 16:11 | disposition short-term general hospital (02) ==
PROVIDERS: Emergency Provider Emergency Medicine; PCP Nurse Practitioner Family
DX: M79.605 Pain in left leg (principal); R50.9 Fever, unspecified; E78.5 Hyperlipidemia, unspecified; I10 Essential (primary) hypertension; F17.210 Nicotine dependence, cigarettes, uncomplicated; L02.416 Cutaneous abscess of left lower limb; M72.6 Necrotizing fasciitis; B95.7 Other staphylococcus as the cause of diseases classified elsewhere; Z87.828 Personal history of other (healed) physical injury and trauma
CPT/HCPCS: 73701; 80053; 82550; 82803; 83605; 85007; 85025; 85027; 86140; 87040; 96365; 96366; 99291; J2543; Q9967

== ENCOUNTER 2023-08-28 12:55 | Outpatient (CLI) | payer MEDICAID, SELFPAY ==
[2023-08-28 13:10] LABS: Basophils # 0.1 K/mm3 (0-0.2); Basophils % 1.3 % (0.1-2.0); Eosinophils # 0.4 K/mm3 (0.0-0.4); Eosinophils % 6.3 % (0.1-12.0); Hematocrit 40.5 % (42.0-52.0); Hemoglobin 13.3 g/dL (14.1-18.0); Lymphocytes # 1.8 K/mm3 (0.7-4.5); Lymphocytes % 26.6 % (10-50); Mean Corpuscular HGB Conc 32.9 g/dL (31.8-35.4); Mean Corpuscular Hemoglobin 25.8 pg (27.0-31.2); Mean Corpuscular Volume 78.5 fl (80-94); Mean Platelet Volume 7.6 fl (7.4-10.4); Monocytes # 0.3 K/mm3 (0.1-1.0); Monocytes % 5.1 % (1.7-9.3); Neutrophils # 4.1 K/mm3 (1.8-7.8); Neutrophils % 60.7 % (37.0-80.0); Platelet Count 394 K/mm3 (142-424); Red Blood Count 5.16 M/mm3 (4.60-6.20); White Blood Count 6.7 K/mm3 (4.8-10.8)
[2023-08-28 13:40] LABS: Chloride 108 mmol/L (98-107); Potassium 4.7 mmoL/L (3.5-5.1); Sodium 141 mmol/L (136-145)
[2023-08-28 13:42] LABS: Blood Urea Nitrogen 9 mg/dl (9-20); Estimated Glomerular Filt Rate 141 ml/min (>60); GFR (African American) 171 ML/MIN (>60)
[2023-08-28 13:43] LABS: Alanine Aminotransferase 38 U/L (12-78); Albumin Level 4.6 g/dl (3.5-5.0); Albumin/Globulin Ratio 1.4 (1.1-1.8); Alkaline Phosphatase 76 U/L (38-126); Anion Gap 13.7 mEq/L (5-15); Aspartate Amino Transferase 34 U/L (17-59); Bilirubin,Total 0.6 mg/dl (0.2-1.3); Calcium 9.8 mg/dl (8.4-10.2); Carbon Dioxide 24 mmol/L (22.0-30.0); Globulin 3.2 g/dL (1.3-3.2); Glucose 89 mg/dl (74-100); Total Protein,Serum 7.8 g/dl (6.3-8.2)
[2023-08-28 14:05] LABS: 25-OH Vitamin D, Total 43.9 ng/mL (30-100)
== END 2023-08-28 23:59 | disposition home or self-care (01) ==
LOC: LAB.DROPOF 12:56
PROVIDERS: PCP Nurse Practitioner Family; Visit Provider Nurse Practitioner Family
DX: R53.83 Other fatigue (principal); E55.9 Vitamin D deficiency, unspecified; D64.9 Anemia, unspecified; Z68.41 Body mass index [BMI] 40.0-44.9, adult
CPT/HCPCS: 80053; 82306; 85025

== ENCOUNTER 2023-10-05 08:00 | Outpatient (RCR) | payer MEDICAID, SELFPAY | END 2023-10-05 08:05 | disposition home or self-care (01) | LOC: PT 08:00 | PROVIDERS: PCP Nurse Practitioner Family; Visit Provider Physical Medicine & Rehabilitation | DX: M79.662 Pain in left lower leg (principal); S81.802S Unspecified open wound, left lower leg, sequela; W34.00XA Accidental discharge from unspecified firearms or gun, initial encounter | CPT/HCPCS: 29580; 97110; 97140; 97163; 97164; 97597; 97598; 97605; 97606 ==

== ENCOUNTER 2025-01-27 10:48 | Outpatient (CLI) | payer SELFPAY ==
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
--- OUTSIDE RECORDS SUMMARY | 2025-01-28 10:44 | XMS_ITS | Encounter Summary ---
Author Organization [facility] Address [address] [place] [address] Care Team Providers Care Drying Tunnel Operator Name Role Phone Margareth Garces APRN Primary Care Provider [phone] Jim Weinberg MD Unavailable [phone] Encounter Details Date Type Department Care Team (Late st Contact Info) Description 06/18/2022 Orders Only External Location [address] [place] [address] Provider, External Social History Tobacco Use Types Packs/Day Years Used Date Smoking Tobacco: Never Smokeless Tobacco: Never Alcohol Use Standard Drinks/Week Comments No 0 (1 standard drink = 0.6 oz pure alcohol) Alcoholic Drinks/day: Never Drank Alcohol Sex and Gender Information Value Date Recorded Sex Assigned at Not on file Legal Sex Male 6:46 PM EDT Gender Identity Not on file Sexual Orientation Not on file documented as of this encounter Plan of Treatment Not on file documented as of this encounter Procedures Procedure Name Priority Date/Time Associated Diagnosis Comments XR OUTSIDE IMAGES 06/18/2022 2:10 AM EST documented in this encounter Results * XR OUTSIDE IMAGES (06/18/2022 2:10 AM EST) Anatomical Region Laterality Modality Radiographic Jackelin ging 06/18/2022 2:10 AM EST us External Provider IMG XR PROCEDURES Final Result documented in this encounter Visit Diagnoses Not on filedocumented in this encounter Additional Health Concerns Infection Onset Date Last Indicated Resolved Time COVID-19 Rule-Out 07/16/2023 07/16/2023 07/16/2023 5:25 PM EDT documented as of this encounter Care Teams Drying Tunnel Operator Relationship Specialty Start Date End Date Margareth Garces APRN [address] [place] [address] PCP - General Family Medicine 03/14/22 Jim Weinberg MD [address] [place] [address] 03/14/22 documented as of this encounter
== END 2025-01-27 23:59 | disposition home or self-care (01) ==
LOC: LAB.DROPOF 01-28 10:37
PROVIDERS: PCP Nurse Practitioner Family; Visit Provider Nurse Practitioner Family
DX: J02.9 Acute pharyngitis, unspecified (principal)
CPT/HCPCS: 87070